=== PATIENT | female | born 1970 | race Caucasian/White ===

== ENCOUNTER 2019-12-29 15:04 | Emergency (ER) | payer OTHER ==
[~2019-12-29] VITALS: Ht 162.6 cm; Wt 92.5 kg
[2019-12-29] MEDS ORDERED: KLOR-CON 10 ER10 MEQ PO (15:29)
[2019-12-29] MEDS ORDERED: TORSEMIDE20 MG PO (15:29)
[2019-12-29 15:48] LABS: ABSOLUTE BASOPHILS 0.1 thou/uL (0.0-0.2); ABSOLUTE EOSINOPHILS 0.1 thou/uL (0.0-0.7); ABSOLUTE LYMPHOCYTES 1.9 thou/uL (0.8-5.3); ABSOLUTE MONOCYTES 0.9 thou/uL (0.0-1.2); ABSOLUTE NEUTROPHILS 9.1 thou/uL (1.6-8.1); BASOPHILS 0.9 %; EOSINOPHILS 0.7 %; HEMATOCRIT 38.1 % (37.0-47.0); HEMOGLOBIN 12.9 gm/dL (12.0-15.0); LYMPHOCYTES 15.9 %; MCH 28.3 pg (26.0-34.0); MCHC 33.8 g/dL (28.0-37.0); MCV 83.6 fL (80.0-100.0); MONOCYTES 7.4 %; MPV 7.3 fl. (7.2-11.1); NUCLEATED RBCS 0 /100WBC; PLATELET COUNT* 536 thou/uL (150-400); POLYS 75.1 %; RBC 4.56 mil/uL (4.20-5.00); RDW-CV 14.5 % (10.5-14.5); WBC 12.1 thou/uL (4.0-11.0)
[2019-12-29] MEDS ORDERED: VENTOLIN HFA 1818 GM INH (16:00)
[2019-12-29] MEDS ORDERED: ELIQUIS2.5 MG PO (16:00)
[2019-12-29] MEDS ORDERED: PLAVIX 75 MG TA75 MG PO (16:00)
[2019-12-29] MEDS ORDERED: NORCO 5-325 TA1 EAC2 PO (16:01)
[2019-12-29] MEDS ORDERED: BREO ELLIPTA 11 EACH INH (16:01)
[2019-12-29] MEDS ORDERED: ZESTRIL10 MG PO (16:02)
[2019-12-29] MEDS ORDERED: LEVO-T75 MCG PO (16:02)
[2019-12-29] MEDS ORDERED: LINZESS290 MCG PO (16:02)
[2019-12-29 16:03] LABS: APTT 25.7 Seconds (25.0-31.3); CALCIUM 9.1 mg/dL (8.5-10.1); CREATININE 1.3 mg/dL (0.6-1.3); POTASSIUM 3.2 mmol/L (3.5-5.1); PROTIME 10.7 Seconds (9.20-11.50)
[2019-12-29] MEDS ORDERED: ATIVAN0.5 M1 PO (16:03)
[2019-12-29] MEDS ORDERED: METOLAZONE 5 MG5 MG PO (16:03)
[2019-12-29] MEDS ORDERED: TOPROL XL25 MG PO (16:04)
[2019-12-29] MEDS ORDERED: NICOTINE TRANSD14 M1 TRANSDERM (16:04)
[2019-12-29] MEDS ORDERED: DEMADEX20 MG PO (16:05)
[2019-12-29] MEDS ORDERED: VENLAFAXINE HC150 M1 PO (16:06)
[2019-12-29] MEDS ORDERED: TRAZODONE HCL100 MG PO (16:06)
[2019-12-29 16:13] LABS: TOTAL BILIRUBIN 0.3 mg/dL (<0.1-1.0); TOTAL PROTEIN 8.6 g/dL (6.4-8.2)
[2019-12-29 17:00] LABS: URINE BILIRUBIN NEGATIVE (Negative); URINE BLOOD TRACE (Negative); URINE CLARITY CLEAR; URINE COLOR YELLOW; URINE GLUCOSE-RANDOM NEGATIVE (Negative); URINE KETONES NEGATIVE (Negative); URINE LEUKOCYTES-REFLEX NEGATIVE (Negative); URINE NITRITE-REFLEX NEGATIVE (Negative); URINE PROTEIN NEGATIVE (Negative); URINE UROBILINOGEN 0.2 E.U./dl (0.2-1.0)
--- NOTE | 2019-12-29 17:15 | EKG ---
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 : [id number] Requested By: Morales Denny Order Number: [id number] MD: Cj Slade Measurements Intervals [place] Rate: 121 P: 53 SD: 151 QRS: 29 QRSD: 99 T: 48 QT: 345 QTc: 490 Interpretive Statements Sinus tachycardia Borderline T abnormalities, anterior leads Borderline prolonged QT interval Baseline wander in lead(s) I,III,aVR,aVL,aVF,V1,V2,V3,V4 No previous ECG available for comparison Electronically Signed On 12-29-2019 17:15:10 CDT by Cj Slade [email or web address] <ELECTRONICALLY SIGNED> By: Cj Slade MD, [facility] 12/29/19 1715 151 151 Cj Slade MD, [facility] /EPI
[2019-12-29 20:40] VITALS: BP 125/70
== END 2019-12-29 20:47 | disposition short-term general hospital (02) ==
LOC: M.ERS 15:04
PROVIDERS: Emergency Medicine Emergency Medical Services
DX: R00.0 Tachycardia, unspecified (principal); R06.00 Dyspnea, unspecified; I50.9 Heart failure, unspecified; E03.9 Hypothyroidism, unspecified; J44.9 Chronic obstructive pulmonary disease, unspecified; Z20.828 Contact with and (suspected) exposure to other viral communicable diseases; Z86.2 Personal history of diseases of the blood and blood-forming organs and certain disorders involving the immune mechanism; Z86.711 Personal history of pulmonary embolism

== ENCOUNTER → 2020-02-23 | Outpatient (CLI) | payer OTHER ==
[~2020-02-23] MED LIST: ARMOUR THYROID60 M1 PO; ATIVAN0.5 M1 PO; BREO ELLIPTA 11 EACH INH; DEMADEX20 MG PO; DESYREL150 MG PO; ELIQUIS2.5 MG PO; KLOR-CON 10 ER10 MEQ PO; LEVO-T75 MCG PO; LINZESS290 MCG PO; LISINOPRIL PO; METOLAZONE 5 MG5 MG PO; NICOTINE TRANSD14 M1 TRANSDERM; NORCO 5-325 TA1 EAC2 PO; PLAVIX 75 MG TA75 MG PO; SPIRONOLACTONE25 MG PO; TOPROL XL50 MG PO; TORSEMIDE20 MG PO; VENLAFAXINE HC150 M1 PO; VENTOLIN HFA 1818 GM INH; ZANAFLEX4 M1 PO
[2020-02-27 15:48] LABS: PAIN MANAGEMENT PANEL ND
== END ==
LOC: M.PC 10:30
PROVIDERS: ATTEND Physical Medicine & Rehabilitation
DX: M47.812 Spondylosis without myelopathy or radiculopathy, cervical region (principal); M47.816 Spondylosis without myelopathy or radiculopathy, lumbar region; M50.30 Other cervical disc degeneration, unspecified cervical region; M51.36 Other intervertebral disc degeneration, lumbar region

== ENCOUNTER → 2020-03-10 | Outpatient (CLI) | payer OTHER ==
[~2020-03-10] MED LIST changes: +NORCO 10-325 T1 EACH PO
== END ==
LOC: M.PC 03-08 10:30
PROVIDERS: ATTEND Physical Medicine & Rehabilitation
DX: M47.816 Spondylosis without myelopathy or radiculopathy, lumbar region (principal); M51.36 Other intervertebral disc degeneration, lumbar region; M47.812 Spondylosis without myelopathy or radiculopathy, cervical region; M50.30 Other cervical disc degeneration, unspecified cervical region

== ENCOUNTER → 2020-03-15 | Outpatient (CLI) | payer OTHER ==
[2020-03-15 17:04] LABS: ABSOLUTE BASOPHILS 0.1 thou/uL (0.0-0.2); ABSOLUTE EOSINOPHILS 0.2 thou/uL (0.0-0.7); ABSOLUTE LYMPHOCYTES 2.2 thou/uL (0.8-5.3); ABSOLUTE MONOCYTES 1.1 thou/uL (0.0-1.2); ABSOLUTE NEUTROPHILS 10.1 thou/uL (1.6-8.1); BASOPHILS 0.5 %; EOSINOPHILS 1.1 %; HEMATOCRIT 38.5 % (37.0-47.0); HEMOGLOBIN 12.9 gm/dL (12.0-15.0); LYMPHOCYTES 16.1 %; MCHC 33.5 g/dL (28.0-37.0); MCV 83.6 fL (80.0-100.0); MONOCYTES 8.3 %; MPV 7.4 fl. (7.2-11.1); NUCLEATED RBCS 0 /100WBC; PLATELET COUNT* 393 thou/uL (150-400); RDW-CV 16.1 % (10.5-14.5); WBC 13.6 thou/uL (4.0-11.0)
[2020-03-15 17:18] LABS: ALBUMIN 3.9 g/dL (3.4-5.0); CALCIUM 9.6 mg/dL (8.5-10.1); CREATININE 2.6 mg/dL (0.6-1.3); POTASSIUM 3.6 mmol/L (3.5-5.1); TOTAL BILIRUBIN 0.2 mg/dL (<0.1-1.0); TOTAL PROTEIN 8.3 g/dL (6.4-8.2)
== END ==
LOC: M.LAB 16:15
PROVIDERS: ATTEND Internal Medicine
DX: J44.1 Chronic obstructive pulmonary disease with (acute) exacerbation (principal); J15.8 Pneumonia due to other specified bacteria; R53.82 Chronic fatigue, unspecified; Z79.899 Other long term (current) drug therapy

== ENCOUNTER → 2020-04-07 | Outpatient (CLI) | payer OTHER | LOC: M.PC 10:30 | PROVIDERS: ATTEND Physical Medicine & Rehabilitation | DX: M51.36 Other intervertebral disc degeneration, lumbar region (principal); M47.816 Spondylosis without myelopathy or radiculopathy, lumbar region; M47.812 Spondylosis without myelopathy or radiculopathy, cervical region; M50.33 Other cervical disc degeneration, cervicothoracic region ==